=== PATIENT | female | born 2000 | race Caucasian/White ===

== ENCOUNTER 2021-12-29 08:32 | Emergency (ER) | payer OTHER ==
[2021-12-29] MEDS ORDERED: Sodium Chloride 0.9% 1,000 ML ONE ×2 (08:46→10:14)
[2021-12-29] MEDS ORDERED: Sodium Chloride 0.9% 1,000 ML IV ONE (08:52)
[2021-12-29] MEDS ORDERED: Morphine 2 MG/ML SYRINGE ONE ×2 (08:54→10:01)
[2021-12-29] MEDS ORDERED: Morphine 2 MG/ML SYRINGE IVPUSH ONE ×2 (08:57→10:02)
[2021-12-29] MEDS ORDERED: Ondansetron 4 MG/2 ML SDV ONE (09:41)
[2021-12-29] MEDS ORDERED: Ondansetron 4 MG/2 ML SDV IVPUSH ONE (09:51)
[2021-12-29] MEDS ORDERED: Sodium Chloride 0.9% 1,000 ML IV SCH (10:10)
[2021-12-30 10:58] LABS: ANION GAP 14.2 mmol/L (5-15); CHLORIDE,CL 102 mmol/L (98-107); ESTIMATED GFR 134 mL/min (>=60); SODIUM,NA 137 mmol/L (136-145)
== END 2021-12-29 10:10 ==
LOC: KA.ED 08:32
DX: S01.111A Laceration without foreign body of right eyelid and periocular area, initial encounter (principal); R41.82 Altered mental status, unspecified; V49.50XA Passenger injured in collision with unspecified motor vehicles in traffic accident, initial encounter; Y92.410 Unspecified street and highway as the place of occurrence of the external cause
CPT/HCPCS: 36415; 51702; 70450; 71250; 72125; 73590-RT; 73600-RT; 74176; 80053; 84703; 85025; 96361; 96374; 96375; 96376; 99284; 99285-25; J2270; J2405; J7030; Q3014